=== PATIENT | female | born 1965 | race Caucasian/White ===

== ENCOUNTER → 2020-04-28 | Outpatient (CLI) | payer OTHER ==
[~2020-04-28] MED LIST: CALC-112 PO; MULT-257 PO; None per pt
== END | disposition home or self-care (01) ==
LOC: CFH 13:08
PROVIDERS: ATTEND Obstetrics & Gynecology
DX: Z02.9 Encounter for administrative examinations, unspecified (principal)

== ENCOUNTER → 2020-05-27 | Outpatient (CLI) | payer OTHER | END | disposition home or self-care (01) | LOC: CFH 13:36 | PROVIDERS: ATTEND Obstetrics & Gynecology | DX: N63.20 Unspecified lump in the left breast, unspecified quadrant (principal) | CPT/HCPCS: 77066; G0279 ==

== ENCOUNTER 2020-06-30 08:09 | Outpatient (CLI) | payer OTHER ==
[2020-06-30] MEDS ORDERED: LIDOCAINE 1%, 20ML ONE (10:34)
[2020-06-30] MEDS ORDERED: LIDOCAINE 1%-EPI 1:100K, 20ML ONE (10:34)
[2020-06-30] MEDS ORDERED: SODIUM BICARBONATE 4.2%, 5ML ONE (10:34)
== END 2020-06-30 23:59 | disposition home or self-care (01) ==
LOC: CFH 08:09
PROVIDERS: ATTEND Obstetrics & Gynecology
DX: R92.0 Mammographic microcalcification found on diagnostic imaging of breast (principal); C50.212 Malignant neoplasm of upper-inner quadrant of left female breast
CPT/HCPCS: 19081; 77065; 88305; J3490